=== PATIENT | male | born 1975 | race Caucasian/White ===

== ENCOUNTER 2022-04-05 15:18 | Emergency (ER) | payer OTHER ==
[2022-04-05] MEDS ORDERED: LIDOCAINE 1% W/EPI 1:100,000 MDV 50 ML VIAL ONE ×2 (16:10→16:49)
--- NOTE | 2022-04-05 16:48 | RAD REPORT ---
EXAM DESCRIPTION: CT - [id number] - 04/05/2022 4:23 pm CLINICAL HISTORY: Trauma, head and neck injury. head injury COMPARISON: No comparisons TECHNIQUE: Axial 5 mm thick images of the head were obtained. Axial 2 mm thick images of the cervical spine were obtained with sagittal and coronal reconstruction images generated and reviewed. All CT scans are performed using dose optimization technique as appropriate and may include automated exposure control or mA/KV adjustment according to patient size. FINDINGS: CT HEAD WITHOUT CONTRAST: No acute hemorrhage, hydrocephalus or extra-axial collection is identified.No areas of brain edema or midline shift. Mild multifocal paranasal sinus opacification.The calvarium is intact. There is a moderate left poste rior scalp hematoma. CT CERVICAL SPINE WITHOUT CONTRAST: No fracture or subluxation.Mild mid and lower cervical degenerative changes.No prevertebral soft tiss ues swelling is identified. IMPRESSION: No acute intracranial or cervical spine findings.
--- NOTE | 2022-04-05 17:35 | EDPHYS ---
Physician Documentation [facility] Name: Crispin Mckeon Age: 46 yrs Sex: Male : 1975 Arrival Date: 04/05/2022 Time: 15:20 Bed 11 Private MD: ED Physician Eduardo Young HPI: 04/05 16:20 This 46 yrs old Male presents to ER via Ambulatory with complaints of Fall Injury, cp Laceration To Head. 16:20 Details of fall: The patient fell from an upright position, getting out of back of cp truck. 16:20 Onset: The symptoms/episode began/occurred this morning, about 0730. cp 16:20 Associated injuries: The patient sustained injury to the head, laceration, of the cp posterior scalp. Severity of symptoms: in the emergency department the symptoms. Patient denies LOC but reports feeling "dazed" after fall. Historical: - Allergies: 15:50 No Known Allergies; vg1 - Home Meds: 15:50 None [Active]; vg1 - PMHx: 15:50 None; vg1 - PSHx: 15:50 Appendectomy; Left Foot; vg1 - Immunization history:: Client reports having NOT received the Covid vaccine. - Social history:: Smoking status: Patient denies any tobacco usage or history of. ROS: 16:25 Skin: Positive for laceration(s), of the posterior scalp. cp 16:25 Neuro: Negative for altered mental status, loss of consciousness. cp 16:25 Constitutional: Negative for body aches, chills, fever. cp 16:25 Neck: Negative for pain with movement, pain at rest, stiffness. 16:25 Cardiovascular: Negative for chest pain, palpitations. 16:25 Respiratory: Negative for cough, shortness of breath, wheezing. 16:25 Abdomen/GI: Negative for abdominal pain, nausea, vomiting. 16:25 Back: Negative for pain at rest, pain with movement. 16:25 All other systems are negative. Exam: 17:00 Constitutional: The patient appears in no acute distress, alert, awake, cp non-diaphoretic, non-toxic, well developed, well nourished. 17:00 Head/face: Noted is a laceration(s), that is deep, that is linear, of the posterior scalp. 17:00 Eyes: Periorbital structures: appear normal, Pupils: equal, round, and reactive to cp light and accomodation, Extraocular movements: intact throughout, Conjunctiva: normal, no exudate, no injection, Sclera: no appreciated abnormality, Lids and lashes: appear normal, bilaterally. 17:00 ENT: External ear(s): are unremarkable, Nose: is normal, Mouth: Lips: moist, Oral mucosa: pink and intact, moist, Posterior pharynx: Airway: no evidence of obstruction, patent. 17:00 Neck: C-spine: vertebral tenderness, that is mild, appreciated at C5 and C6, crepitus, is not appreciated, ROM/movement: is normal, is supple, without pain, no range of motions limitations. 17:00 Chest/axilla: Inspection: normal, Palpation: is normal, no crepitus, no tenderness. 17:00 Cardiovascular: Rate: normal, Rhythm: regular. 17:00 Respiratory: the patient does not display signs of respiratory distress, Respirations: normal, no use of accessory muscles, no retractions, labored breathing, is not present, Breath sounds: are clear throughout, no decreased breath sounds, no stridor, no wheezing. 17:00 Abdomen/GI: Inspection: abdomen appears normal, Palpation: abdomen is soft and non-tender, in all quadrants. 17:00 Back: pain, is absent, ROM is normal. 17:00 Neuro: Orientation: to person, place \\T\\ time. Mentation: is normal, Motor: moves all fours, strength is normal, Sensation: is normal, Gait: is steady, at a normal pace, without difficulty. Vital Signs: 15:46 BP 145 / 106; Pulse 90; Resp 16; Temp 98.1; Pulse Ox 100% ; Weight 99.79 kg; Height 6 vg1 ft. 0 in. (182.88 cm); Pain 2/10; 15:46 Body Mass Index 29.84 (99.79 kg, 182.88 cm) vg1 Laceration: 17:35 Wound Repair of 7cm ( 2.8in ) subcutaneous laceration to scalp. Linear shaped.. Distal cp neuro/vascular/tendon intact. Anesthesia: Wound infiltrated with 10 mls of 1% lidocaine w/ Epi. Wound prep: Moderate cleansing by me, Wound irrigation by me. Skin closed with 1 3-0 Prolene using running sutures. Dressed with 4x4's. Patient tolerated well. MDM: 15:54 Patient medically screened. 17:34 Data reviewed: vital signs, nurses notes, radiologic studies, CT scan. 17:34 Counseling: I had a detailed discussion with the patient and/or guardian regarding: the cp historical points, exam findings, and any diagnostic results supporting the discharge/admit diagnosis, radiology results, the need for outpatient follow up, a family practitioner, to return to the emergency department if symptoms worsen or persist or if there are any questions or concerns that arise at home. Response to treatment: the patient's symptoms have markedly improved after treatment. Special discussion: Based on the patient's history, exam and DX evaluation, there is no indication for emergent intervention or inpatient TX. It is understood by the patient/guardian that if the SXs persist or worsen they need to return immediately for re-evaluation. ED course: Patient declines stephy to close wound and requests suturing. Wound closed as noted. Will discharge to home for continued monitoring. 04/05 16:05 Order name: CT Head C Spine; Complete Time: 16:55 04/05 16:56 Interpretation: Reviewed report. 04/05 16:14 Order name: Dressing - Wound; Complete Time: 16:52 04/05 16:14 Order name: Gloves, Sterile; Complete Time: 16:52 04/05 16:14 Order name: Setup Suture Tray; Complete Time: 16:52 04/05 16:14 Order name: Wound Care: please clean and irrigate wound; Complete Time: 16:43 04/05 17:32 Order name: Wound dressing; Complete Time: 17:39 cp Administered Medications: 16:52 Drug: Lidocaine-Epinephrine -1%: (1:100,000) 10 ml {Note: administered by rachel Pandey.} Volume: 20 ml; Route: Infiltration; Disposition Summary: 04/05/22 17:34 Discharge Ordered Location: Home cp Problem: new cp Symptoms: have improved cp Condition: Stable cp Diagnosis - Laceration without foreign body of scalp cp Followup: cp - With: Private Physician - When: 7 - 10 days - Reason: Staple/Suture removal Discharge Instructions: - Discharge Summary Sheet cp - Head Injury, Adult cp - Sutures, [place], or Adhesive Wound Closure cp Forms: - Medication Reconciliation Form cp - Thank You Letter cp - Antibiotic Education cp - Prescription Opioid Use cp Prescriptions: - Cephalexin 500 mg Oral Capsule - take 1 capsule by ORAL route every 8 hours for 10 days; 30 capsule; Refills: 0, cp Product Selection Permitted Signatures: Dispatcher [employer] Esther Tian RN RN ss Rudy Mora PA PA cp Garcia, Victoria RN RN vg1
--- NOTE | 2022-04-05 17:35 | ER ---
Nurse's Notes [facility] Name: Crispin Mckeon Age: 46 yrs Sex: Male : 1975 Arrival Date: 04/05/2022 Time: 15:20 Bed 11 Private MD: Diagnosis: Laceration without foreign body of scalp Presentation: 04/05 15:46 Chief complaint: Patient states: Pt fell this morning around 0730; stated "I was vg1 stepping out of the bed of the truck and I lost footing on the bumper and slipped and fell and hit the back of my head on the bumper" Denies LOC. Pt drove from [place], [place] to [place] to be seen. Coronavirus screen: Vaccine status: Patient reports being unvaccinated. Client denies travel out of the [place] in the last 14 days. Ebola Screen: Patient denies exposure to infectious person. Patient denies travel to an Ebola-affected area in the 21 days before illness onset. Initial Sepsis Screen: Does the patient meet any 2 criteria? No. Patient's initial sepsis screen is negative. Does the patient have a suspected source of infection? No. Patient's initial sepsis screen is negative. Risk Assessment: Do you want to hurt yourself or someone else? Patient reports no desire to harm self or others. Onset of symptoms was April 05, 2022. 15:46 Method Of Arrival: Ambulatory [facility] 15:46 Acuity: NANCI 3 vg1 Triage Assessment: 15:50 General: Appears comfortable, Behavior is calm, cooperative. Pain: Complains of pain in vg1 left parietal area Pain currently is 2 out of 10 on a pain scale. Neuro: Level of Consciousness is awake, alert, obeys commands, Oriented to person, place, time, situation. Injury Description: Laceration sustained to left parietal area is clean, not bleeding, was sustained 6-12 hours ago. Historical: - Allergies: 15:50 No Known Allergies; vg1 - Home Meds: 15:50 None [Active]; vg1 - PMHx: 15:50 None; vg1 - PSHx: 15:50 Appendectomy; Left Foot; vg1 - Immunization history:: Client reports having NOT received the Covid vaccine. - Social history:: Smoking status: Patient denies any tobacco usage or history of. Screenin:55 Abuse screen: Denies threats or abuse. Denies injuries from another. Nutritional ss screening: No deficits noted. Tuberculosis screening: Never had TB. Fall Risk None identified. Assessment: 15:55 General: Appears in no apparent distress. comfortable, Behavior is calm, cooperative, ss Denies fever, feeling ill, fatigue, chills. Pain: Complains of pain in left parietal area Pain currently is 2 out of 10 on a pain scale. Quality of pain is described as tender, Is continuous. Neuro: Ramos Agitation-Sedation Scale (RASS): 0 - Alert and Calm. Neuro: Denies blurred vision dizziness, numbness. Cardiovascular: Capillary refill < 3 seconds is brisk in bilateral fingers Patient's skin is warm and dry. Respiratory: Airway is patent Respiratory effort is even, unlabored, Respiratory pattern is regular, symmetrical. GI: Patient currently denies nausea, vomiting. : No signs and/or symptoms were reported regarding the genitourinary system. EENT: Nares are clear. Derm: Skin is intact, is healthy with good turgor, Skin is pink, warm \\T\\ dry. normal. Musculoskeletal: Circulation, motion, and sensation intact. Range of motion: intact in all extremities, Swelling absent. Vital Signs: 15:46 BP 145 / 106; Pulse 90; Resp 16; Temp 98.1; Pulse Ox 100% ; Weight 99.79 kg; Height 6 vg1 ft. 0 in. (182.88 cm); Pain 2/10; 15:46 Body Mass Index 29.84 (99.79 kg, 182.88 cm) vg1 ED Course: 15:20 Patient arrived in ED. mr 15:30 Rudy Mora PA is PHCP. cp 15:30 Eduardo Young MD is Attending Physician. cp 15:50 Triage completed. vg1 15:50 Arm band placed on. vg1 15:55 Patient has correct armband on for positive identification. Bed in low position. Call ss light in reach. 16:25 CT Head C Spine In Process Unspecified. EDMS 16:52 Esther Hammonds, JEFF is Primary Nurse. ss 17:31 Assist provider with laceration repair on left parietal area that was between 2.6 to ss 7.5 cm using sutures. Set up tray. Performed by Rudy BOSWELL Dressed with Neosporin, Patient tolerated well. 17:52 Patient did not have IV access during this emergency room visit. ss Administered Medications: 16:52 Drug: Lidocaine-Epinephrine -1%: (1:100,000) 10 ml {Note: administered by rachel Pandey.} Volume: 20 ml; Route: Infiltration; Outcome: 17:34 Discharge ordered by . katy 17:52 Discharged to home ambulatory, with significant other. ss 17:52 Condition: good 17:52 Discharge instructions given to patient, significant other, Instructed on discharge instructions, follow up and referral plans. medication usage, Demonstrated understanding of instructions, follow-up care, medications, Prescriptions given X 1. 17:53 Patient left the ED. ss Signatures: Dispatcher [employer] JAISONIN RigoKavita Shelby, RN RN Rudy Gilliland PA PA cp Garcia, Victoria, RN RN vg1
[2022-04-05 18:08] VITALS: BP 145/106; TEMP 98.1; O2SAT 100
== END 2022-04-05 17:53 | disposition home or self-care (01) ==
LOC: ER 15:18
PROC: 0JQ00ZZ Repair Scalp Subcutaneous Tissue and Fascia, Open Approach (ICD-10-PCS; principal; 2022-04-05)
DX: S01.01XA Laceration without foreign body of scalp, initial encounter (principal); W17.89XA Other fall from one level to another, initial encounter; Y93.89 Activity, other specified; Y92.9 Unspecified place or not applicable
CPT/HCPCS: 70450; 72125; 99284